=== PATIENT | male | born 1995 | race Two or more races ===

== ENCOUNTER 2025-04-28 00:14 | Emergency (ER) | payer OTHER ==
[~2025-04-28] VITALS: Ht 170.2 cm; Wt 77.0 kg
[2025-04-28 00:21] VITALS: O2SAT 98
[2025-04-28 00:29] VITALS: BP 130/75; PULSE 80; RESP 18; TEMP 36.8; O2SAT 100
[2025-04-28] MEDS ORDERED: AMOX1TAB16 MT (00:32)
[2025-04-28] MEDS ORDERED: IBUP-2029 MT (00:32)
== END 2025-04-28 01:25 | disposition home or self-care (01) ==
LOC: ER 00:28
DX: K04.7 Periapical abscess without sinus (principal); K02.9 Dental caries, unspecified; Z79.899 Other long term (current) drug therapy
CPT/HCPCS: 99283